=== PATIENT | female | born 1955 | race Caucasian/White ===

== ENCOUNTER 2018-06-25 09:36 | Day surgery (SDC) | payer OTHER ==
[~2018-06-25] VITALS: Ht 154.9 cm; Wt 116.4 kg
[2018-06-25] VITALS (16 sets, daily range): BP systolic 122–159; BP diastolic 64–80; PULSE 64–76; RESP 16–19; Ht 154.9 cm; Wt 116.4 kg
[~2018-06-25 09:36] MED LIST: ROCURONIUM 50 MG INJ ONE; SUCCINYLCHOLINE CHLORIDE 100 MG/5 ML SYG IV ONE
[2018-06-25] MEDS ORDERED: LISI-471 PO (10:45)
[2018-06-25] MEDS ORDERED: TAMS0.4C2 PO (10:46)
[2018-06-25] MEDS ORDERED: CIPR-193 PO (10:47)
[2018-06-25] MEDS ORDERED: IOHEXOL 300MG/ML 30 ML BTL ONE (12:03)
--- NOTE | 2018-06-25 12:16 | PREAC ---
Date/Time of Note Date/Time of Note DATE: 06/25/18 TIME: 12:15 Anesthesia Eval and Record Evaluation Time Pre-Procedure Interview DATE: 06/25/18 TIME: 12:15 Age 63 Sex female NPO: 8 hrs Preoperative diagnosis LEFT URETER STONE Planned procedure CYSTOSOCPY, LASER LITHOTRIPSY, jj STENT Past Medical History Past Medical History: Includes Cardio: HTN GI: Morbid obesity Surgery & Anesthesia Issues No known issue Meds Anticoagulation: No Beta Amauri within 24 hr: No Reason Beta Amauri not given: Pt. not on B-Amauri Reported Medications Ciprofloxacin Hcl* (Ciprofloxacin Hcl*) 250 Mg Tablet, 250 MG PO BID, #14 TAB STARTED 06-24-18 06/25/18 Tamsulosin Hcl* (Tamsulosin Hcl*) 0.4 Mg Cap.er.24h, 0.4 MG PO DAILY, CAP 06/25/18 Lisinopril* (Lisinopril*) 20 Mg Tablet, 20 MG PO DAILY, #30 TAB 06/25/18 Meds reviewed: Yes Allergies Coded Allergies: No Known Allergy (Unverified , 06/25/18) Allergies Reviewed: Yes Labs/Studies Labs Reviewed: Reviewed by anesthesiologist test: N/A Studies: ECG (SR), CXR (NL) Pre-procedure Exam Last vitals Vital Signs Date Temp Pulse Resp B/P (MAP) Pulse Ox O2 O2 Flow FiO2 Time Delivery Rate 06/25/18 97.7 76 16 132/64 97 Room Air 10:00 (86) Airway: Adequate mouth opening Mallampati: Mallampati I Teeth: Normal Lung: Normal Heart: Normal ASA Physical Status ASA physical status: 3 Emergency: None Planned Anesthetic General/MAC: ETT, LMA Planned Pain Management Parenteral pain med Pre-operative Attestations Prior to commencing anesthesia and surgery, the patient was re-evaluated, there was verification of: *The patient's identity *The results of appropriate recent lab work and preoperative vital signs *The above evaluation not changing prior to induction *Anesthetic plan, risk benefits, alternative and complications discussed with patient/family; questions answered; patient/family understands, accepts and wishes to proceed. JANE DE MD Jun 25, 2018 12:16
[2018-06-25] MEDS ORDERED: hydrALAzine 20 MG INJ IV PRN (12:30)
[2018-06-25] MEDS ORDERED: OXYCODONE/ACETAMINOPHEN (5/325) TAB PO PRN ×2 (12:30)
[2018-06-25] MEDS ORDERED: MEPERIDINE 25 MG INJ IV PRN (12:30)
[2018-06-25] MEDS ORDERED: HYDROmorphONE 1 MG/5 ML IV SYRINGE IV PRN ×3 (12:30)
[2018-06-25] MEDS ORDERED: DIPHENHYDRAMINE 50 MG INJ IV PRN (12:30)
[2018-06-25] MEDS ORDERED: LABETALOL HCL 20MG INJ IV PRN (12:30)
[2018-06-25] MEDS ORDERED: ONDANSETRON 4 MG INJ IV PRN (12:30)
--- NOTE | 2018-06-25 12:35 | HPN ---
Date/Time of Note Date/Time of Note DATE: 06/25/18 TIME: 12:34 Interval H&P Admission Note Pt. seen H&P reviewed: No system changes MULUGETA MERCEDES MD Jun 25, 2018 12:35
[2018-06-25] MEDS ORDERED: PROPOFOL 100 ML ONE (12:40)
[2018-06-25] MEDS ORDERED: FENTAnyl 50 MCG/ML VIAL ONE (12:45)
[2018-06-25] MEDS ORDERED: CEFAZOLIN 1 GM INJ ONE ×2 (12:49→12:51)
[2018-06-25] MEDS ORDERED: METOCLOPRAMIDE 10 MG INJ ONE (12:55)
[2018-06-25] MEDS ORDERED: ONDANSETRON 4 MG INJ ONE (12:55)
[2018-06-25] MEDS ORDERED: CIPROFLOXACIN 400MG/D5W 200 ML ONE (13:04)
[2018-06-25] MEDS ORDERED: EPHEDrine 25 MG/5 ML SYG ONE (13:04)
--- NOTE | 2018-06-25 14:51 | OPR ---
Date/Time of Note Date/Time of Note DATE: 06/25/18 TIME: 14:39 Operative Report Procedure Date: Jun 25, 2018 Preoperative Diagnosis Left renal stone Postoperative Diagnosis Same Operation/Procedure Performed Cystoscopy, removal of left ureteral JJ stent ,left ureteropyeloscopy, laser lithotripsy and insertion of a new JJ stent 6 German by 22 cm long. Surgeon see signature line Pockets And Pieces Necktie Operator Felipa Hinton Anesthesia Type: general Anesthesiologist: JANE DE MD Estimated Blood Loss: minimal Transfusion none Specimen Left renal stone fragments, old JJ stent Grafts/Implants none Complications none Pt Condition Post Procedure: stable Disposition: PACU Indications The patient had left ureteropelvic junction stone, she underwent cystoscopy and placement of a JJ stent at another hospital. The stone now is in the kidney ,upper pole. Procedure Description Patient was brought to the operating room and given general endotracheal anesthesia. Timeout was done and the patient was identified by her name, birthdate, the procedure and the side of the procedure. The patient was given 400 mg of Cipro IV at the start of the procedure. The patient was prepped and draped in the usual sterile manner. #21 German cystoscope sheath was introduced into the bladder. Urine was collected for culture and sensitivity. Fluoroscopy was done and the left ureteral JJ stent was visualized. The distal end of the JJ stent was then grasped with a grasper and all the JJ stent was pulled out while doing fluoroscopy to make sure that the proximal curl does straighten up. Following that the left ureteral orifice was cannulated with a 5 German open ended ureteral catheter and a 0.035 zip wire was advanced all the way up to the kidney. The open ended was removed and reintroduced through the second working channel and a 0.035 sensor wire was passed through the open ended all the way up to the kidney. The 2 wires were kept in place and the scope was removed. The zip wire was used to advance the access sheath on it and the sensor wire was used as a safety wire. 11 x 13 and 28 cm long axis sheath was then advanced on the zip wire all the way up to the upper ureter. Then the digital flexible ureteroscope was passed through the access sheath all the way up to the kidney. Patient did have some blood and blood clots in the kidney which I had to irrigate and pull out. The stone was then visualized a picture of the stone was taken then using the 200 m holmium laser fiber the stone was broken into multiple pieces. The laser was put on standby and these pieces were basketed out. One piece did come down through the access sheath but got stuck at the end of the access sheath I had to take the access sheath out at The basket and then retrieve the stone from inside the access sheath. Then I used a dual-lumen ureteral catheter and a passed it into the kidney on the sensor wire and then passed the zip wire into the second channel. Then I removed the dual-lumen and again used the sensor wire as a safety wire and the zip wire to advance the access sheath into the ureter again. Then I went back into the kidney with the digital flexible ureteroscope and basketed all the fragments out of the kidney. At the end of the procedure I pulled the ureteroscope out as I am pulling the access sheath and made sure that there is no stones in the ureter. Then I reintroduced the cystoscope on the safety wire and inserted a 6 German by 22 cm long JJ stent. The proximal end of it coiled into the kidney and the distal and coiled into the bladder. The distal end is attached to a string that was brought out of the urethra and taped to her right groin. The patient tolerated the procedure well and was transferred to the recovery room in a stable and satisfactory condition MULUGETA MERCEDES MD Jun 25, 2018 14:50
[2018-06-25] MEDS ORDERED: HYDROCODONE/APAP (5/325) TAB PO PRN (15:00)
--- NOTE | 2018-06-28 07:26 | PAC ---
Date/Time of Note Date/Time of Note DATE: 06/26/18 TIME: 07:25 Post-Anesthesia Notes Post-Anesthesia Note Last documented vital signs Vital Signs Date Temp Pulse Resp B/P (MAP) Pulse Ox O2 O2 Flow FiO2 Time Delivery Rate 06/25/18 98.6 69 18 145/66 98 Room Air 16:10 (92) Activity: WNL Respiratory function: WNL Cardiovascular function: WNL Mental status: Baseline Pain reasonably controlled: Yes Hydration appropriate: Yes Nausea/Vomiting absent: No JANE DE MD Jun 28, 2018 07:26
== END 2018-06-25 17:00 | disposition home or self-care (01) ==
LOC: SDS 09:36
PROVIDERS: ATTEND Urology
DX: N20.0 Calculus of kidney (principal); I10 Essential (primary) hypertension
CPT/HCPCS: 52356; 74430; 87086; 88300; C2617; J0690; J0744; J1170; J2405; J2765; J3010; Z7512; Z7610; Q9967

== ENCOUNTER → 2018-08-30 | Outpatient (CLI) | payer OTHER ==
[~2018-08-30] MED LIST changes: +CIPR-193 PO; +LISI-471 PO; -ROCURONIUM 50 MG INJ ONE; -SUCCINYLCHOLINE CHLORIDE 100 MG/5 ML SYG IV ONE; +TAMS0.4C2 PO
--- NOTE | 2018-08-30 13:36 | CONS ---
Assessment/Plan Assessment/Plan Hospital Course (Demo Recall) 63-year-old female with end-stage osteoarthritis of the left knee with varus deformity. She also has significant quadriceps tendinopathy. At this time recommending conservative treatment. I am recommending a steroid injection for pain and inflammation. She should also avoid excessive stress on her quadriceps tendon. She should avoid stairs and forceful active extension of the knee. She should walk with her knee in extension. After the injection and some time to rest of recommend physical therapy for quad strengthening. Also had a long discussion with her for the need of losing significant amount of weight as her BMI is 48.2 Follow-up for steroid injection Consultation Date/Type/Reason Admit Date/Time Date of Consultation: August 30, 2018 Reason for Consultation Left knee pain Date/Time of Note DATE: 08/30/18 TIME: 13:19 Hx of Present Illness This is a 63-year-old female with a chief complaint of left knee pain. The pain began approximately 9 years ago after a fall. It became significantly worse after fall 1 month ago. The patients pain is in the medial, lateral, anterior aspect of the left knee. Pain is not radiating to the lower leg. The pain is rated as a 8-9/10. Patient denies complaints of numbness or tingling. The pain is exacerbated by climbing stairs and ambulation. Pain is not relieved by NSAID's. Patient has been taking ibuprofen on a p.r.n. basis as well as using ice. Duration: Years Injury: Fall 1 month ago exacerbated pain Walking tolerance: 0 blocks Limp: Yes Support: Cane and sometimes electric wheelchair Swelling: Yes Crepitation: Yes Instability: Yes Stairs: Does not use Physical Therapy: Yes Injections: No NSAIDs: Rare use of ibuprofen Prior surgery: No Back pain: Yes Hip pain: No Risk of AVN : No Patient denies fever, chills, shortness of breath, chest pain, nausea/vomiting, constipation, diarrhea, numbness, and tingling. Past Medical History Hypertension Kidney stones Gallbladder stones Osteoarthritis Home Meds Reported Medications Ciprofloxacin Hcl* (Ciprofloxacin Hcl*) 250 Mg Tablet, 250 MG PO BID, #14 TAB STARTED 06-24-18 06/25/18 Tamsulosin Hcl* (Tamsulosin Hcl*) 0.4 Mg Cap.er.24h, 0.4 MG PO DAILY, CAP 06/25/18 Lisinopril* (Lisinopril*) 20 Mg Tablet, 20 MG PO DAILY, #30 TAB 06/25/18 Allergies: Coded Allergies: No Known Allergy (Unverified , 06/25/18) Past Surgical History Ureter stent Tonsillectomy Family History Significant Family History: no pertinent family hx Social History Alcohol Use: none Smoking Status: Never smoker Drug Use: none Exam/Review of Systems Exam Vitals Weight: 255 pounds Height: 5 foot 1 inch BMI: 40.2 Temperature: 90.6 Heart Rate: 68 Blood Pressure: 160/70 Respiratory Rate: 14 Exam General: Alert, oriented x3. No Acute Distress. Heart: Regular rate and rhythm. Lungs: No respiratory distress. No accessory muscle use. Musculoskeletal: Left Knee This is a well developed morbidly obese female who is alert, oriented times three and in no apparent distress. Skin is intact over the left knee as well as the lower extremity with no abrasions, lacerations, or ulcerations. Observation of the patient's gait reveals an antalgic gait with Large varus thrust. Frontal plane alignment is varus. There is pain on palpation of medial and lateral joint line. Tenderness to palpation at the insertion of the quad tendon. The patient demonstrates grinding anteriorly with ROM. Range of motion: 10 extension to approximately 100 degrees of flexion. Collateral ligament testing reveals no instability with varus or valgus stress at 0 and 30 degrees of flexion. Negative Brianna's and negative posterior drawer. Neurovascularly intact with 5/5 EHL/tibialis anterior/gastroc. Sensation intact to light touch in a sural, saphenous, deep peroneal, superficial peroneal, medial and lateral plantar nerve distribution. Palpable, symmetric dorsalis pedis and posterior tibial pulses in both lower extremities. Hip examination normal. Imaging Imaging The patient received a standard set of films today that were personally re viewed. Imaging included a standing bilateral knee AP, PA flexion, merchant views and a dedicated lateral of the affected knee: There is varus alignment of the knee. There is complete loss of joint space medial compartment(s) and significant loss of joint space in the lateral and patellofemoral compartment. There is large osteophyte formation. There is subchondral sclerosis. There are subchondral cysts. Degenerative changes are most severe in the medial compartment(s) MRI of the left knee was personally reviewed. MRIs dated 08/23/2018 There is end-stage tricompartmental heart rhinitis with severe medial compartment joint space narrowing. Completely macerated medial meniscus. There is edema surrounding superficial medial collateral ligament. There is high- grade distal quadriceps tendinopathy. MATEUSZ HARTMAN MD August 30, 2018 13:32
--- NOTE | 2018-08-30 16:11 | RADRPT ---
PROCEDURE: XR Knees. CLINICAL INDICATION: Bilateral knee pain. TECHNIQUE: Total of eight views. Weightbearing frontal, oblique, and lateral views of the both kne es. Patellar views of both knees. COMPARISON: No prior study is available for comparison. FINDINGS: There is no fracture or dislocation. The soft tissues are normal. There are degenerative changes with osteophytes arising from all 3 joint compartment margins bilatera lly. There is bilateral medial joint compartment narrowing and deformity with left worse than right. There is no lytic or blastic lesion. There is no radiopaque foreign body. IMPRESSION: 1. Severe degenerative changes of both knees with left worse than right. 2. No acute abnormality. RPTAT: QQ .Murphy Bae MD, MD Date Time Electronically viewed and signed by .Murphy Bae MD, on 08/30/2018 16:10 .R/
== END | disposition home or self-care (01) ==
LOC: HKI 11:07
PROVIDERS: ATTEND Orthopaedic Surgery Adult Reconstructive Orthopaedic Surgery
DX: M17.12 Unilateral primary osteoarthritis, left knee (principal); I10 Essential (primary) hypertension
CPT/HCPCS: 73564; Z7500; G0463

== ENCOUNTER → 2018-09-29 | Outpatient (CLI) | payer OTHER ==
--- NOTE | 2018-09-29 13:36 | CONS ---
Consult Date/Type/Reason Admit Date/Time Initial Consult Date Date/Time of Note DATE: 09/29/18 TIME: 13:33 Subjective 63-year-old female following up today for left knee steroid injection for end- stage osteoarthritis. She denies any changes in her symptoms. Objective Vitals Weight: 255 pounds Height: 5 foot 1 inch BMI: 48.2 Temperature: 98.4 Heart Rate: 57 Blood Pressure: 179/72 Respiratory Rate: 14 Exam General: Awake, alert, in no acute distress, pleasant and cooperative Heart: regular rhythm Lungs: breathing comfortably, no tachypnea or dyspnea MUSCULOSKELETAL: Left lower extremity: Skin intact. No erythema. Obesity with redundant soft tissue. Sensation intact to light touch in a sural, saphenous, deep peroneal, super ficial peroneal, medial and lateral plantar nerve distribution. Motor is intact, patient able to dorsiflex and plantarflex ankle and extend and flex great toe. Dorsalis Pedis pulse +2, Brisk capillary refill. Compartments are soft. Calves non-tender to palpation bilaterally. Results/Medications Home Meds Reported Medications Ciprofloxacin Hcl* (Ciprofloxacin Hcl*) 250 Mg Tablet, 250 MG PO BID, #14 TAB STARTED 06-24-18 06/25/18 Tamsulosin Hcl* (Tamsulosin Hcl*) 0.4 Mg Cap.er.24h, 0.4 MG PO DAILY, CAP 06/25/18 Lisinopril* (Lisinopril*) 20 Mg Tablet, 20 MG PO DAILY, #30 TAB 06/25/18 Assessment/Plan Hospital Course (Demo Recall) 63-year-old female with end-stage osteoarthritis of bilateral knees. Today she is presenting for left knee steroid injection. I continued to encourage the patient to pursue weight loss as well as physical therapy. I discussed with her that weight loss can significantly relieve the pressure of the knee. In addition if and when she would need a total knee replacement she would need to lose significant weight as her BMI is 48.2. Plan: Left knee steroid injection Physical therapy weight loss Follow-up 3 months Assessment/Plan (Daily) Left knee steroid injection procedure: Risks and benefits of steroid injection reviewed with patient. The risks include infection, failure, pain, swelling, nerve/tendon/ligament damage. The patient verbalized understanding and verbal consent was obtained prior to procedure. The left knee was prepped in a sterile fashion with alcohol and betadine the site of injection was confirmed. Anteromedial approach was used. The skin and capsule was anesthetized with 3mL 1% lidocaine. The left knee was injected with 2mL 1% lidocaine, 2mL 0.25% bupivacaine, 40mg Depo-Medrol. Injection flowed freely. Good hemostasis was achieved and no complications noted. The patient tolerated the procedure well. Limit activity and ice for 24-48 hours MATEUSZ HARTMAN MD Sep 29, 2018 13:36
== END | disposition home or self-care (01) ==
LOC: HKI 09:42
PROVIDERS: ATTEND Orthopaedic Surgery Adult Reconstructive Orthopaedic Surgery
DX: M17.12 Unilateral primary osteoarthritis, left knee (principal)
CPT/HCPCS: 20610; Z7500; Z7610; G0463